=== PATIENT | male | born 1995 | race Caucasian/White ===

== ENCOUNTER 2018-04-30 02:51 | Emergency (ER) | payer BC, OTHER ==
[2018-04-30 03:02] VITALS: BP 137/85
--- NOTE | 2018-04-30 03:26 | EDM.PDOC ---
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 He awoke about 2 hours ago with bilateral eye pain, photophobia, and some reddness. He has experienced a similiar condition about a year ago following welding, but the Gentamycin gtts were not helping. - Related Data Allergies Allergy/AdvReac Type Severity Reaction Status Date / Time No Known Allergies Allergy Verified 09/14/16 23:53 Home Meds: Home Meds atorvaSTATin [Lipitor] 80 mg PO BEDTIME 08/24/14 [History] Past Medical History Cardiovascular History: Reports: High Cholesterol Social & Family History - Family History Family Medical History: Noncontributory - Tobacco Use Smoking Status *Q: Never Smoker Second Hand Smoke Exposure: No - Caffeine Use Caffeine Use: Reports: Soda - Recreational Drug Use Recreational Drug Use: No ED ROS GENERAL - Review of Systems Review Of Systems: ROS reveals no pertinent complaints other than HPI. ED EXAM GENERAL W FULL EYE - Physical Exam Exam: See Below Exam Limited By: Physical Impairment (eye pain) General Appearance: Alert, WD/WN, Moderate Distress, Obese Eye Exam: Bilateral Eye: Conjunctival Injection, EOMI, Normal Fundi, PERRL Visual Acuity (R) 20/: 20 Visual Acuity (L) 20/: 20 With Correction: No Eyelids: Bilateral: Normal Appearance Conjunctiva & Sclera: Bilateral: Conjunctival Edema, Injected Cornea Exam: Bilateral: Examined with Flourescein (no defect) Extraocular Movements: Bilateral: Intact Pupils: Normal Accommodation Pupillary Size: Bilateral: 4 mm Pupillary Reaction: Bilateral: Brisk Anterior Chamber: Bilateral: Normal Appearance Posterior Chamber: Bilateral: Normal Funduscopic Ears: Normal External Exam Nose: Normal Inspection Throat/Mouth: Normal Inspection, Normal Oropharynx Head: Normocephalic Neck: Supple Respiratory/Chest: Lungs Clear Cardiovascular: Regular Rate, Rhythm Back Exam: Normal Inspection Extremities: Normal Inspection Neurological: Alert, Oriented, CN II-XII Intact, Normal Cognition, Normal Gait, No Motor/Sensory Deficits Psychiatric: Normal Affect, Normal Mood Skin Exam: Warm, Dry, Intact Lymphatic: No Adenopathy Course - Vital Signs Text/Narrative:: Following assessment, I instilled Tetracaine 0.05% gtts to both eyes with relief within a minute. Following examination, I instilled Homatropine 5% gtt OU. Patient tolerated measures well. Last Recorded V/S: Last Vital Signs Temp 36.8 C 04/30/18 03:00 Pulse 93 04/30/18 03:00 Resp 19 04/30/18 03:00 BP 137/85 04/30/18 03:00 Pulse Ox 99 04/30/18 03:00 Departure - Departure Time of Disposition: : Disposition: Home, Self-Care 01 Condition: Fair Clinical Impression: UV keratitis Qualifiers: Laterality: bilateral Qualified Code(s): H16.133 - Photokeratitis, bilateral - Discharge Information *PRESCRIPTION DRUG MONITORING PROGRAM REVIEWED*: Not Applicable *COPY OF PRESCRIPTION DRUG MONITORING REPORT IN PATIENT BROOK: Not Applicable Instructions: Ultraviolet Keratitis, [id number] Referrals: Jaya Plasencia MD [Primary Care Provider] - Forms: ED Department Discharge Additional Instructions: Rest eyes and use eye protection like sunglasses. Stop the Gentamicin Drop. Follow up with Primary Care Provider as needed. May call or come back if symptoms gets worse. - Problem List & Annotations (1) UV keratitis SNOMED Code(s): 0578394 Code(s): H16.139 - PHOTOKERATITIS, UNSPECIFIED EYE Status: Acute Current Visit: Yes Annotation/Comment:: I suggested avoidance of bright light, NSAIDs , and rest. Qualifiers: Laterality: bilateral Qualified Code(s): H16.133 - Photokeratitis, bilateral - Problem List Review Problem List Initiated/Reviewed/Updated: Yes - Assessment/Plan Plan: Follow up if needed.
== END 2018-04-30 03:25 | disposition home or self-care (01) ==
LOC: FB.ED 02:51
DX: H16.133 Photokeratitis, bilateral (principal); E78.00 Pure hypercholesterolemia, unspecified; Z79.899 Other long term (current) drug therapy
CPT/HCPCS: 99283